=== PATIENT | male | born 2000 | race African-American/Black ===

== ENCOUNTER 2018-03-03 19:17 | Emergency (ER) | payer OTHER ==
[2018-03-03] MEDS: ALBUTEROL SULFATE 2.5 MG/0.5 ML INH NEB SOLN INH (20:58)
[2018-03-03] MEDS: NAPROXEN 250 MG TAB PO (21:45)
== END 2018-03-03 21:51 | disposition home or self-care (01) ==
LOC: M ED 19:17
DX: R00.1 Bradycardia, unspecified (principal); Z86.79 Personal history of other diseases of the circulatory system
CPT/HCPCS: 71046

== ENCOUNTER → 2018-11-20 | Outpatient (CLI) | payer OTHER ==
[~2018-11-20] MED LIST: NAPR-837 PO; VENTAER INH
--- NOTE | 2018-11-21 03:48 | REP ---
Clinical: Dyspnea . Comparison: 03/03/2018 . Technique: PA and lateral. Findings: The mediastinum and cardiac silhouette are normal. The lung mojica are clear and without acute consolidation, effusion, or pneumothorax. The skeletal structures are intact and normal. Impression: 1. No acute cardiopulmonary process. Electronically Signed by Sanjay Graham MD 11/21/2018 03:41 A
== END ==
LOC: M RAD 09:31
PROVIDERS: ATTEND Physician Assistant
DX: R06.00 Dyspnea, unspecified (principal)

== ENCOUNTER 2019-01-09 13:44 | Emergency (ER) | payer OTHER ==
[~2019-01-09] VITALS: Ht 175.3 cm; Wt 70.5 kg
--- NOTE | 2019-01-09 15:34 | REP ---
Scrotal sonography: History: Pain and swelling right testis. No comparison imaging. Findings: High-resolution bilateral scrotal sonography is performed. No intratesticular mass lesion is seen on either side. Right testis measures 4.0 x 2.4 x 2.7 cm. Left testicular dimensions are 3.5 x 1.8 x 2.3 cm. The patient pointed out the palpable abnormality in the right scrotum. Scanning at this level corresponds to the tail of the epididymis on the right. This area of the epididymis on the right shows mild enlargement and increased flow consistent with epididymitis. Testicular Doppler flow is normal bilaterally. Right testis resistive index is 0.71 and resistive index on the left is 0.51. Study is otherwise unremarkable. There is a tiny sliver of right sided hydrocele fluid. Impression: No intratesticular mass lesion is seen. Findings consistent with epididymitis of the tail of the epididymis on the right. Electronically Signed by Marcello Castañeda MD 01/09/2019 03:58 P
[2019-01-09] MEDS ORDERED: AZITHROMYCIN 250 MG TAB PO ONE (17:00)
[2019-01-09] MEDS ORDERED: LIDOCAINE 1% SDV 5 ML VIAL DILUENT ONE (17:00)
[2019-01-09] MEDS ORDERED: cefTRIAXone SOD 250 MG VIAL (J0696) IM ONE (17:00)
[2019-01-09 17:36] VITALS: BP 127/71
[2019-01-09 19:55] LABS: CHLAMYDIA DNA AMPLIFICATION POSITIVE (NEGATIVE); GC DNA AMPLIFICATION NEGATIVE (NEGATIVE)
== END 2019-01-09 17:37 | disposition home or self-care (01) ==
LOC: M ED 13:44
DX: N45.1 Epididymitis (principal); Z79.1 Long term (current) use of non-steroidal anti-inflammatories (NSAID)
CPT/HCPCS: 76870; 87491; 87591; 93976; 96372; 99283; J0696